=== PATIENT | female | born 1965 | race Caucasian/White ===

== ENCOUNTER 2018-05-18 09:17 | Outpatient (CLI) | payer BC | END 2018-05-18 09:18 | disposition home or self-care (01) | LOC: BICMAMMO 09:17 | PROVIDERS: ATTEND Internal Medicine Hematology & Oncology | DX: Z08 Encounter for follow-up examination after completed treatment for malignant neoplasm (principal); Z85.3 Personal history of malignant neoplasm of breast | CPT/HCPCS: G0279 ==

== ENCOUNTER 2019-07-09 09:46 | Outpatient (CLI) | payer BC ==
--- NOTE | 2019-07-09 10:32 | MMO ---
Bilateral MAMMO Bilat Screen [facility]. CLINICAL HISTORY: Patient is 54 years old and is seen for diagnostic exam. The patient has no family history of breast cancer. The patient has a history of right Implants in May,, left Excisional Biopsy at age 48 - malignant and left Mastectomy at age 48 - malignant. VIEWS: The views performed were: right craniocaudal; right mediolateral oblique; and right Implant displaced with tomosynthesis. FILMS COMPARED: The present examination has been compared to prior imaging studies performed at [facility] on 04/19/2015, 04/22/2016, 05/16/2017 and 05/18/2018. MAMMOGRAM FINDINGS: The breast is heterogeneously dense, which could obscure a lesion on mammography. There are no suspicious masses, suspicious calcifications, or new areas of architectural distortion. IMPRESSION: THERE IS NO MAMMOGRAPHIC EVIDENCE OF MALIGNANCY. A ROUTINE FOLLOW-UP MAMMOGRAM IN 1 YEAR IS RECOMMENDED. THE RESULTS OF THIS EXAM WERE SENT TO THE PATIENT. ACR BI-RADS Category 1 - Negative MAMMOGRAPHY NOTE: 1. A negative mammogram report should not delay a biopsy if a dominant of clinically suspicious mass is present. 2. Approximately 10% to 15% of breast cancers are not detected by mammography. 3. Adenosis and dense breasts may obscure an underlying neoplasm. Reported by: JAQUELINE CAMPOS MD Electonically Signed: [id number]
== END 2019-07-09 09:47 | disposition home or self-care (01) ==
LOC: BICMAMMO 09:46
PROVIDERS: ATTEND Internal Medicine Hematology & Oncology
DX: Z12.31 Encounter for screening mammogram for malignant neoplasm of breast (principal); Z98.82 Breast implant status
CPT/HCPCS: 77063; 77066; 77067; G0279

== ENCOUNTER 2019-08-11 08:03 | Outpatient (CLI) | payer BC ==
[2019-08-11 13:55] LABS: #Basophils 0.1 thou/uL (0.0-0.2); #Eosinphils 0.2 thou/uL (0.0-0.7); #Lymphocytes 2.5 thou/uL (1.20-3.40); #Monocytes 0.5 thou/uL (0.11-0.59); #Neutrophils 5.9 thou/uL (1.40-6.50); %Basophils 0.9 % (0.0-1.0); %Eosinophils 1.8 % (0.0-10.0); %Lymphocytes 26.8 % (21.0-51.0); %Monocytes 5.7 % (0.0-10.0); %Neutrophils 64.8 % (42.0-75.0); Hemoglobin 13.7 g/dL (12.0-16.0); Mean Corpuscular HGB CONC 33.3 g/dL (32.0-36.0); Mean Corpuscular Hemoglobin 31.7 pg (27.0-31.0); Mean Corpuscular Volume 95.3 fL (78.0-98.0); Mean Platelet Volume 7.8 fL (7.4-10.4); Platelet Count 292 thou/uL (130-400); RBC Distribution Width 12.5 % (11.5-14.5); Red Blood Cell (RBC) Count 4.33 mill/uL (4.20-5.40); White Blood Cell (WBC) Count 9.2 thou/uL (4.8-10.8)
[2019-08-11 14:06] LABS: BHCG - Serum Negative (NEGATIVE); Pregs Control Background? CLEAR/WHITE (CLR/WHITE); Pregs Control Bar Appear? YES (CONTROL BAR)
--- NOTE | 2019-08-15 17:12 | EKG ---
Test Reason : Blood Pressure : / mmHG Vent. Rate : 061 BPM Atrial Rate : 061 BPM P-R Int : 166 ms QRS Dur : 088 ms QT Int : 448 ms P-R-T Axes : 030 040 056 degrees QTc Int : 450 ms Normal sinus rhythm Cannot rule out Anterior infarct , age undetermined Abnormal ECG No previous ECGs available Confirmed by JIMMY POWELL (2) on 08/15/2019 5:11:29 PM Referred By: ANDREA Confirmed By:JIMMY POWELL
== END 2019-08-11 08:04 | disposition home or self-care (01) ==
LOC: LABBT 08:03
PROVIDERS: ATTEND Orthopaedic Surgery
DX: Z01.818 Encounter for other preprocedural examination (principal); G56.02 Carpal tunnel syndrome, left upper limb
CPT/HCPCS: 84703; 85025; 93005; 93010

== ENCOUNTER 2019-08-18 06:03 | Day surgery (SDC) | payer BC ==
[2019-08-11 13:17] VITALS: BMI 29.9
--- NOTE | 2019-08-17 12:48 | HP ---
DATE OF ANTICIPATED SURGERY: 08/18/2019 HISTORY OF PRESENT ILLNESS: The patient is a 54-year-old female with several-year history of pain and tingling in median nerve distribution of her left hand. She has not had an injury. It persisted despite use of anti-inflammatory medication and night splinting. She had previous carpal tunnel release by me in 1998 with good results and her current symptoms are similar. PAST MEDICAL HISTORY: The patient has history of breast cancer and anxiety. She is otherwise in good health. MEDICATIONS: She takes; 1. Multivitamin. 2. Lizbet. ALLERGIES: SHE IS ALLERGIC TO SHELLFISH. FAMILY HISTORY: Otherwise unremarkable. SOCIAL HISTORY: Otherwise unremarkable. REVIEW OF SYSTEMS: Otherwise unremarkable. PHYSICAL EXAMINATION: GENERAL: Reveals a healthy female. HEENT: Unremarkable. NECK: Supple. CHEST: Clear. HEART: Regular rate and rhythm. ABDOMEN: Soft, nontender. PELVIC: Deferred. RECTAL: Deferred. BREASTS: Deferred. EXTREMITIES: Pertinent findings of the left wrist, there is questionable thenar atrophy. There is full range of motion. There is no point tenderness. Motor exam is intact. There is mild positive Tinel sign and positive Phalen test. There is slight subjective numbness in median nerve distribution. Good capillary refill. DIAGNOSTIC STUDIES: Nerve conduction studies performed by Dr. Dumont on 06/02/2019 revealed moderately severe left carpal tunnel syndrome. IMPRESSION: Left carpal tunnel syndrome. PLAN: Endoscopic possible open left carpal tunnel release. The nature of the surgery, length of recovery, and potential complications such as infection, loss of motion, incomplete relief, nerve injury, recurrence, and need for additional treatment, repeat surgery have been discussed in detail. Job ID: [id number]
[2019-08-18] MEDS ORDERED: Lidocaine 1% (PF) 30 ML VIAL ONE (06:33)
[2019-08-18] MEDS ORDERED: Midazolam HCl 2 mg/2 ml Vial ONE ×2 (07:18→07:28)
[2019-08-18] MEDS ORDERED: Fentanyl 100 MCG/2 ML VIAL ONE (07:24)
[2019-08-18] MEDS ORDERED: PROPOFOL 20 ML ONE (07:29)
[2019-08-18] MEDS ORDERED: Lidocaine 1% PF 5 ML VIAL ONE (07:29)
[2019-08-18] MEDS ORDERED: HYDROcodone/Acetaminophen 5/325 mg Tablet ONE (08:49)
--- NOTE | 2019-08-18 15:09 | OP ---
DATE OF PROCEDURE: 08/18/2019 PREOPERATIVE DIAGNOSIS: Left carpal tunnel syndrome. POSTOPERATIVE DIAGNOSIS: Left carpal tunnel syndrome. PROCEDURE PERFORMED: Left endoscopic carpal tunnel release. DESCRIPTION OF PROCEDURE: After satisfactory anesthesia was induced in supine position, the patient was prepped and draped in routine manner. The left arm was elevated and exsanguinated with an Esmarch bandage and the tourniquet inflated to 250 mmHg. A 2 cm incision was made in the proximal wrist flexion crease and skin was infiltrated with 2 mL of 1% lidocaine. Using sharp and blunt dissection, a distally based flap of deep forearm fascia was developed and retracted distally. Palmaris longus tendon was retracted radially. Proximal edge of the deep forearm fascia was split under direct visualization with small scissors to make sure there was no proximal impingement of the median nerve. Synovial elevator was introduced beneath the transverse carpal ligament. The synovium was cleaned from the undersurface. Carpal tunnel dilators were inserted. The [place] endoscopic carpal tunnel system was introduced beneath the transverse carpal ligament in line with the ring finger. The distal edge of the ligament was easily identified and then divided in a distal to proximal direction by pulling the trigger of the assembly and engaging the knife and withdrawing the scope proximally. This was done in several stages to make sure there was complete division of the transverse carpal ligament, which was documented with video printer. After withdrawing the scope, a carpal tunnel dilator could be inserted into the carpal tunnel and there was markedly improved passage of the instrument with subcutaneous position of the instrument. The scope was reintroduced into the carpal tunnel. There was wide separation of the 2 leaves of the transverse carpal ligament. The tourniquet was released after 6 minutes. There was no excessive bleeding and the scope was withdrawn. The wound was thoroughly irrigated and then closed with running subcuticular 3-0 nylon. Sterile dressing was applied. The patient immobilized in a Velcro wrist splint. She was awakened and taken to the recovery room in stable condition. There were no apparent intraoperative complications. The estimated blood loss was negligible. The patient will be discharged home in satisfactory condition, instructed on ice and elevation, given written wound care instructions. She was given a prescription for [place] 5 for pain, 15 tablets. She will be rechecked in my office in 10 to 14 days or sooner if there are any problems prior to that time. Job ID: [id number]
== END 2019-08-18 09:25 | disposition home or self-care (01) ==
LOC: SDC 06:03
PROVIDERS: ATTEND Orthopaedic Surgery
PROC: 01N54ZZ Release Median Nerve, Percutaneous Endoscopic Approach (ICD-10-PCS; principal; 2019-08-18)
DX: G56.02 Carpal tunnel syndrome, left upper limb (principal); Z79.899 Other long term (current) drug therapy; Z91.013 Allergy to seafood
CPT/HCPCS: J0690; J2001; J2250; J2704; J3010

== ENCOUNTER 2020-11-23 06:45 | Outpatient (CLI) | payer BC ==
[2020-11-23 09:56] LABS: Hemoglobin 13.4 g/dL (12.0-16.0); Mean Corpuscular HGB CONC 32.4 G/DL (32.0-36.0); Mean Corpuscular Hemoglobin 31.7 PG (27.0-33.0); Mean Corpuscular Volume 97.6 fl (80.0-100.0); Mean Platelet Volume 10.3 fl (7.4-10.4); Platelet Count 247 10x3/uL (130-400); RBC Distribution Width 13.2 % (11.5-14.5); Red Blood Cell (RBC) Count 4.23 10x6/uL (3.90-5.20); White Blood Cell (WBC) Count 6.6 10x3/uL (4.5-11.0)
[2020-11-23 21:58] LABS: SARS-CoV-2 MS2 Positive; SARS-CoV-2 N Gene Negative; SARS-CoV-2 S Gene Negative; SARS-CoV-2 by NAA Not Detected (NotDetected); SARS-CoV-2 orf1ab Negative
== END 2020-11-23 06:46 | disposition home or self-care (01) ==
LOC: LABBT 06:45
PROVIDERS: ATTEND Obstetrics & Gynecology
DX: Z01.812 Encounter for preprocedural laboratory examination (principal); Z20.822 Contact with and (suspected) exposure to COVID-19; N85.00 Endometrial hyperplasia, unspecified
CPT/HCPCS: 85027; 86850; 86900; 86901; 87635; U0003

== ENCOUNTER 2020-11-28 08:19 | Day surgery (SDC) | payer BC ==
[2020-11-24 14:49] VITALS: BMI 40.6
[2020-11-28] MEDS ORDERED: Famotidine/PF 20 mg/2ml Vial ONE (08:33)
[2020-11-28] MEDS ORDERED: CeleCOXIB 100 MG CAP ONE (08:33)
[2020-11-28] MEDS ORDERED: Gabapentin 300 MG CAP ONE (08:33)
[2020-11-28] MEDS ORDERED: SUGAMMADEX SODIUM 200 MG/2 ML VIAL ONE (09:32)
[2020-11-28] MEDS ORDERED: Fentanyl 100 MCG/2 ML VIAL ONE ×2 (09:32→12:14)
[2020-11-28] MEDS ORDERED: Lidocaine 2% w/Epinephrine 1:200K 20 ML VIAL ONE (09:35)
[2020-11-28] MEDS ORDERED: Bupivacaine PF 0.5% 30 ML VIAL ONE (09:35)
[2020-11-28] MEDS ORDERED: Dexamethasone 20 MG/5 ML VIAL ONE (11:09)
[2020-11-28] MEDS ORDERED: Ondansetron PF 4 MG/2 ML Vial ONE (11:09)
[2020-11-28] MEDS ORDERED: PROPOFOL 200 MG/20 ML VIAL ONE (11:09)
[2020-11-28] MEDS ORDERED: Lidocaine 1% PF 5 ML VIAL ONE (11:09)
[2020-11-28] MEDS ORDERED: Rocuronium Bromide 10 MG/ML (10ML VIAL) ONE (11:09)
[2020-11-28] MEDS ORDERED: Glycopyrrolate 0.2 MG/ML 5 ML SYRINGE ONE (11:09)
[2020-11-28] MEDS ORDERED: Promethazine HCl 25 MG/ML VIAL IM PRN (11:44)
[2020-11-28] MEDS ORDERED: Bisacodyl 10 MG SUPP PR PRN (11:44)
[2020-11-28] MEDS ORDERED: Morphine 2 MG/ML VIAL SLOW IVP PRN (11:44)
[2020-11-28] MEDS ORDERED: Zolpidem Tartrate 5 MG TAB PO PRN (11:44)
[2020-11-28] MEDS ORDERED: diphenhydrAMINE 25 MG CAP PO PRN (11:44)
[2020-11-28] MEDS ORDERED: traMADol HCl 50 MG TAB PO PRN (11:44)
[2020-11-28] MEDS ORDERED: Morphine 4 MG/ML VIAL SLOW IVP PRN (11:44)
[2020-11-28] MEDS ORDERED: Ondansetron PF 4 MG/2 ML Vial IVP PRN (11:44)
[2020-11-28] MEDS ORDERED: HYDROcodone/Acetaminophen 5/325 mg Tablet PO PRN ×2 (11:44)
[2020-11-28] MEDS ORDERED: Simethicone Chewable 80 MG TAB PO PRN (11:44)
[2020-11-28] MEDS: Sodium Chloride 0.9% 1,000 ML IV SCH ×2 (14:10→16:04)
--- NOTE | 2020-11-28 14:10 | OP ---
DATE OF PROCEDURE: 11/28/2020 PREOPERATIVE DIAGNOSES: 1. A 55-year-old white female with postmenopausal bleeding. 2. Complex endometrial hyperplasia, on biopsy. 3. Prior tamoxifen usage. POSTOPERATIVE DIAGNOSES: 1. A 55-year-old white female with postmenopausal bleeding. 2. Complex endometrial hyperplasia, on biopsy. 3. Prior tamoxifen usage. PROCEDURE PERFORMED: Robotic total laparoscopic hysterectomy with bilateral salpingo oophorectomy. GLASS ETCHER SURGEON: Michell Thorne PA-C ANESTHESIA: General endotracheal. ESTIMATED BLOOD LOSS: 25 mL. COMPLICATIONS: None. COUNTS: Correct x2. PATHOLOGY: Uterus, cervix, bilateral tubes and ovaries. ANTIBIOTICS: 2 g Ancef on-call to OR with ERAS protocol. FINDINGS: 1. Normal-appearing postmenopausal ovaries and tubes. 2. Uterus with a noted pedunculated 2 x 2 cm uterine fibroid. 3. Clear urine present in Bravo catheter postprocedure and bladder was watertight to fluid distention over 300 mL pre-colpotomy procedure. 4. Bilateral ureteral peristalsis noted postprocedure. DISPOSITION: To recovery room, stable. DESCRIPTION OF PROCEDURE: The patient previously received informed consent in regard to surgery. She was taken back to the operating room, where she received a general endotracheal anesthetic agent without complications. She was then prepped and draped in the usual fashion in dorsal lithotomy position with Bryan stirrups. A Bravo catheter was placed. A side-arm speculum was placed in the vagina. The uterus sounded to 7 cm and a FLASH uterine manipulator was placed with a 3.5 cm cervical cup. The tenaculum and speculum were then removed. Attention was then turned to the abdomen, where prospective trocar sites were infiltrated with 0.5% Marcaine with epinephrine. A 12-mm umbilical incision was made. Veress needle was entered into the peritoneal cavity with pressure noted to be less than 5 mm. Abdomen was insufflated to patient pressure of 15 with approximately 5 L of carbon dioxide gas. Veress needle was removed and the 12-mm trocar was placed. The laparoscope was introduced through the trocar sleeve confirming proper entry. Additional bilateral lower quadrant 8-mm trocars were placed under laparoscopic guidance along with the right upper quadrant 11 mm port. The robot was then docked and I proceeded to carry out the procedure from the operative console while my assistants remained at the bedside. The uterus was elevated from the pelvis. The left fallopian tube was grasped by my pier master assistant. The left IP ligament was coagulated and transected with bipolar fenestrated cautery and monopolar scissors. Serial coagulation of the broad ligament hugging close to uterus was carried out until the left round ligament was reached. It was coagulated and transected and the anterior leaf of the broad ligament was entered and the vesicouterine peritoneum was incised in a layering technique dropping the bladder safely past the cervicovaginal margin. The left uterine vessels were skeletonized and they were coagulated in the internal cervical os region. This was repeated in likewise fashion on the right side. Again, the IP ligament was coagulated and transected. Serial coagulation of the broad ligament was carried out until the right round ligament was reached. It was coagulated and transected and the anterior leaf of the broad ligament was entered. The vesicouterine peritoneum was incised again in layering technique dropping the bladder safely past the cervicovaginal margin. The uterine vessels again were skeletonized and coagulated in the internal cervical os region. The bladder was distended prior to anterior colpotomy and was noted to be intact and it had been dissected adequately past the intended anterior colpotomy site. The anterior colpotomy was then made with monopolar scissors starting at 12 o'clock to 3 o'clock and 12 o'clock to 9 o'clock around the cervical cup until the posterior colpotomy was completed. The specimen was then moved into the vagina. My monopolar scissor was switched with a Praneeth needle bottom hoop driver. The vaginal cuff was coagulated with bipolar fenestrated cautery for hemostasis. Stratafix suture was then brought in and I closed the vaginal cuff in full-thickness closure from the right angle of the vagina to the left vaginal angle back towards the midline. The excess suture and needle were removed in the right upper quadrant port. The pelvis was irrigated and the pedicle sites were confirmed to be hemostatic. Bilateral ureteral peristalsis was noted to be visualized and direction of the ureters were inferior to the operative sites. I then undocked the trocar, rescrubbed and I placed a deep stitch in the fascia and the umbilical defect in a [id number] stitch fashion closing the fascial defect. The rest of the trocar sites were closed with 4-0 Monocryl subcuticular and Dermabond. A sponge stick was utilized to check the vagina and hemostasis vaginally was confirmed. The patient was awakened from anesthesia and transferred to recovery room in stable condition. Job ID: [id number]
[2020-11-28] MEDS: Ketorolac Tromethamine 30 MG/ML VIAL IVP SCH ×2 (15:58→23:35)
[2020-11-29] MEDS: Sodium Chloride 0.9% 1,000 ML IV SCH (00:53)
[2020-11-29] MEDS: Ketorolac Tromethamine 30 MG/ML VIAL IVP SCH (06:40)
--- NOTE | 2020-11-29 07:34 | PDOC.EVN ---
Event Note - Event Note Event Note: Patient tolerating diet, ambulating, voiding. O:AFVSS abdomen is soft/ torochar sites clean, dry, intact A/P:Post op day 1 from robotic tlh/bso for complex atypical heperplasia..Doing well. Final pathology pending. Discharge home and has f/u in 2 and 6 weeks.
[2020-11-29 07:50] LABS: Hemoglobin 12.1 g/dL (12.0-16.0); Mean Corpuscular HGB CONC 33.5 g/dL (32.0-36.0); Mean Corpuscular Hemoglobin 32.9 pg (27.0-31.0); Mean Corpuscular Volume 98.3 fL (78.0-98.0); Mean Platelet Volume 7.6 fL (7.4-10.4); Platelet Count 213 thou/uL (130-400); RBC Distribution Width 11.6 % (11.5-14.5); Red Blood Cell (RBC) Count 3.66 mill/uL (4.20-5.40); White Blood Cell (WBC) Count 9.4 thou/uL (4.8-10.8)
[2020-11-29 08:00] VITALS: BP 119/60; TEMP 97.7
--- NOTE | 2020-11-29 08:06 | DIS ---
DATE OF ADMISSION: 11/28/2020 DATE OF DISCHARGE: 11/29/2020 DATE OF SURGERY: 11/28/2020. DIAGNOSES: Complex atypical hyperplasia of the endometrium, history of tamoxifen use, postmenopausal bleeding, uterine fibroids, and history of breast cancer. PROCEDURE PERFORMED: Robotic TLH-BSO. SUMMARY OF HOSPITAL COURSE: Ms. Sheets is a 55-year-old white female who developed some postmenopausal bleeding and was noted to have a thickened endometrial lining of 8 mm. She underwent an endometrial biopsy in my office, showing some complex atypical hyperplasia. She underwent definitive surgical therapy with a robotic TLH-BSO. Postoperatively, the patient has done well. Vital signs remained stable. She is ambulating, voiding, and tolerating diet without difficulty. Pain control was adequate with oral medications. Pathology is pending at the time of dictation. She will be discharged to home with a prescription for tramadol 50 mg q.6 hours p.r.n. pain [id number] ibuprofen and Tylenol as needed. Pathology will be followed up. She has a postoperative appointment 2 weeks and 6 weeks. Job ID: [id number]
[2020-11-29] MEDS ORDERED: Fluticasone Propionate Nasal Spray 16 gm Bottle NASAL SCH (09:00)
[2020-11-29] MEDS ORDERED: FLUoxetine HCl 10 MG CAP PO SCH (09:00)
[2020-11-29] MEDS ORDERED: Magnesium Oxide 400 MG TAB PO SCH (09:00)
[2020-11-29] MEDS ORDERED: Cholecalciferol 1,000 UNITS (25 MCG) TAB PO SCH (09:00)
[2020-11-29] MEDS ORDERED: Multivit, Therapeutic 1 TAB PO SCH (09:00)
[2020-11-29] MEDS ORDERED: BIOTIN 1000 MCG PO SCH (09:00)
[2020-11-29] MEDS ORDERED: Loratadine/Pseudoephedrine 10/240 mg Tablet PO SCH (09:00)
[2020-12-03] MEDS ORDERED: Ibuprofen 600 MG TAB PO SCH (22:00)
== END 2020-11-29 10:04 | disposition home or self-care (01) ==
LOC: SDC 08:19 → 3SE 13:14 → SDC 11-29 10:04
PROVIDERS: ATTEND Obstetrics & Gynecology
PROC: 0UT24ZZ Resection of Bilateral Ovaries, Percutaneous Endoscopic Approach (ICD-10-PCS; principal; 2020-11-29)
PROC: 0UT94ZZ Resection of Uterus, Percutaneous Endoscopic Approach (ICD-10-PCS; principal; 2020-11-29)
PROC: 0UT74ZZ Resection of Bilateral Fallopian Tubes, Percutaneous Endoscopic Approach (ICD-10-PCS; principal; 2020-11-29)
DX: D25.9 Leiomyoma of uterus, unspecified (principal); N85.01 Benign endometrial hyperplasia; N95.0 Postmenopausal bleeding; Z79.899 Other long term (current) drug therapy; Z91.013 Allergy to seafood
CPT/HCPCS: 36415; 85027; 88307; J0690; J1100; J1885; J2270; J2405; J2704; J3010; S0020; S0028

== ENCOUNTER 2022-01-08 11:24 | Outpatient (CLI) | payer BC | END 2022-01-08 11:25 | disposition home or self-care (01) | LOC: BICRAD 11:24 | PROVIDERS: ATTEND Family Medicine | DX: M25.512 Pain in left shoulder (principal) ==

== ENCOUNTER 2023-07-16 09:24 | Outpatient (CLI) | payer BC | END 2023-07-16 09:25 | disposition home or self-care (01) | LOC: BICMAMMO 09:24 | PROVIDERS: ATTEND Internal Medicine Hematology & Oncology | DX: Z12.31 Encounter for screening mammogram for malignant neoplasm of breast (principal); Z90.12 Acquired absence of left breast and nipple; Z85.3 Personal history of malignant neoplasm of breast; Z98.82 Breast implant status | CPT/HCPCS: 77063; 77067 ==

== ENCOUNTER 2025-07-25 09:57 | Outpatient (CLI) | payer BC | END 2025-07-25 09:58 | disposition home or self-care (01) | LOC: BICMAMMO 09:57 | PROVIDERS: ATTEND Family Medicine | DX: Z12.31 Encounter for screening mammogram for malignant neoplasm of breast (principal); Z98.82 Breast implant status; Z90.12 Acquired absence of left breast and nipple; M85.89 Other specified disorders of bone density and structure, multiple sites | CPT/HCPCS: 77063; 77067; 77080 ==